=== PATIENT | male | born 1945 | race Caucasian/White ===

== ENCOUNTER 2021-07-27 11:04 | Emergency (ER) | payer MEDICARE, OTHER ==
[2021-07-27 12:03] LABS: HEMOGLOBIN 14.3 gm/dl (14.0-17.5); RED BLOOD COUNT 4.54 M/UL (4.20-5.50)
[2021-07-27 12:34] LABS: BUN/CREATININE RATIO 19 (0-10)
[2021-07-27] MEDS ORDERED: ZITHROMAX250 MG PO (12:58)
[2021-07-27] MEDS ORDERED: AMOX TR-K CLV1 EAC4 PO (12:58)
== END 2021-07-27 13:24 | disposition home or self-care (01) ==
LOC: ER1 11:04
PROVIDERS: Nurse Practitioner
DX: M25.512 Pain in left shoulder (principal); J18.9 Pneumonia, unspecified organism; I25.2 Old myocardial infarction; I10 Essential (primary) hypertension; Z79.82 Long term (current) use of aspirin; Z95.5 Presence of coronary angioplasty implant and graft
CPT/HCPCS: 71045; 72125; 80053; 82550; 82553; 83874; 84484; 85025; 86140; 96374; 96375; 99284; J1885; J2360

== ENCOUNTER 2021-07-31 11:25 | Inpatient (IN) | payer MEDICARE, OTHER ==
[~2021-07-31] VITALS: Ht 180.3 cm; Wt 86.2 kg
[~2021-07-31 11:25] MED LIST: AMOX TR-K CLV1 EAC4 PO; ZITHROMAX250 MG PO
[2021-07-31 13:07] LABS: HEMOGLOBIN 14.6 gm/dl (14.0-17.5); RED BLOOD COUNT 4.61 M/UL (4.20-5.50); WHITE BLOOD COUNT 10.8 K/UL (4.5-11.0)
[2021-07-31] MEDS ORDERED: IRBESARTAN-HCT1 EAC1 PO (16:03)
[2021-07-31] MEDS ORDERED: OMEPRAZOLE20 MG PO (16:03)
[2021-07-31] MEDS ORDERED: PRAVASTATIN SOD20 MG PO (16:04)
[2021-07-31] MEDS ORDERED: ASPIRIN EC81 MG PO (16:04)
[2021-07-31 20:40] LABS: BODY FLUID SOURCE PLEURAL; MONONUCLEAR CELLS 96.1 (75-100); POLYMORPHONUCLEAR % 3.9 (0-25); RBC (AUTOMATED) 99200 (0-100000); WBC (AUTOMATED) 2868 (0-500)
[2021-07-31 20:45] LABS: LDH, BODY FLUID 344 U/L; TOTAL PROTEIN, BODY FLUID 4.9 gm/dL
[2021-08-01 07:51] LABS: HEMOGLOBIN 13.9 gm/dl (14.0-17.5); RED BLOOD COUNT 4.43 M/UL (4.20-5.50); WHITE BLOOD COUNT 10.1 K/UL (4.5-11.0)
--- NOTE | 2021-08-01 19:15 | NUR ---
PATIENT STATED DR. SALDIVAR TOLD HIM THIS MORNING HE WOULD ORDER HIM SOME "PAIN CREAM" FOR HIS LEFT SHOULDER PAIN. NO ORDERED NOTED IN [facility] FOR TOPICAL CREAM. CALLED DR. SALDIVAR FOR PATIENT REQUEST. NO NEW ORDERS NOTED. DR. SALDIVAR STATED HE PRESCRIBED HIM PO PAIN MEDICATION.
[2021-08-02 06:39] LABS: HEMOGLOBIN 12.9 gm/dl (14.0-17.5); RED BLOOD COUNT 4.17 M/UL (4.20-5.50); WHITE BLOOD COUNT 10.1 K/UL (4.5-11.0)
[2021-08-02] MEDS ORDERED: COMBIVENT RESPIM4 GM INH (16:32)
[2021-08-02] MEDS ORDERED: AZITHROMYCIN500 MG PO (16:32)
[2021-08-02] MEDS ORDERED: CEFDINIR300 MG PO (16:32)
[2021-08-03 16:13] LABS: ORGANISM ID Not indicated. (.); SPECIMEN SOURCE Urine (.); STREPTOCOCCUS PNEUMONIAE AG Negative (Negative)
== END 2021-08-02 19:28 | disposition home or self-care (01) | DRG 196 ==
LOC: ER1 11:25 → CDU 15:22 → M/S 15:22
PROVIDERS: Internal Medicine; Physician Assistant; ADMIT Internal Medicine
PROC: 0W993ZZ Drainage of Right Pleural Cavity, Percutaneous Approach (ICD-10-PCS; principal; 2021-07-31)
DX: J84.10 Pulmonary fibrosis, unspecified (principal); J96.01 Acute respiratory failure with hypoxia; J18.9 Pneumonia, unspecified organism; J96.21 Acute and chronic respiratory failure with hypoxia; S22.31XA Fracture of one rib, right side, initial encounter for closed fracture; J90 Pleural effusion, not elsewhere classified; N17.9 Acute kidney failure, unspecified; J44.0 Chronic obstructive pulmonary disease with (acute) lower respiratory infection; I25.10 Atherosclerotic heart disease of native coronary artery without angina pectoris; E78.5 Hyperlipidemia, unspecified; Z20.822 Contact with and (suspected) exposure to COVID-19; Z95.5 Presence of coronary angioplasty implant and graft; I12.9 Hypertensive chronic kidney disease with stage 1 through stage 4 chronic kidney disease, or unspecified chronic kidney disease; N18.9 Chronic kidney disease, unspecified; I25.2 Old myocardial infarction
CPT/HCPCS: ECHO; 0240U; 36415; 36600; 71045; 71250; 80048; 80053; 80061; 81001; 82550; 82553; 82803; 83540; 83550; 83605; 83615; 83735; 83880; 83986; 84100; 84155; 84157; 84484; 85025; 85027; 86140; 87015; 87040; 87086; 87116; 87205; 87278; 87899; 89051; 93005; 93306; 94640; 94664; 94760; 96374; 96375; 99285; J0456; J0696; J1650; J2185; J2270; J2405; J7030

== ENCOUNTER 2021-08-12 18:02 | Emergency (ER) | payer MEDICARE, OTHER ==
[~2021-08-12 18:02] MED LIST changes: +ASPIRIN EC81 MG PO; +AZITHROMYCIN500 MG PO; +CEFDINIR300 MG PO; +COMBIVENT RESPIM4 GM INH; +IRBESARTAN-HCT1 EAC1 PO; +OMEPRAZOLE20 MG PO; +PRAVASTATIN SOD20 MG PO
[2021-08-12 19:02] LABS: HEMOGLOBIN 14.6 gm/dl (14.0-17.5); RED BLOOD COUNT 4.69 M/UL (4.20-5.50); WHITE BLOOD COUNT 11.7 K/UL (4.5-11.0)
[2021-08-12] MEDS ORDERED: COLACE 100MG C100 MG PO (22:39)
[2021-08-12] MEDS ORDERED: ENDOCET 5-3251 EACH PO (22:39)
== END 2021-08-12 23:00 | disposition home or self-care (01) ==
LOC: ER1 18:02
PROVIDERS: Emergency Medicine
DX: C34.91 Malignant neoplasm of unspecified part of right bronchus or lung (principal); I11.9 Hypertensive heart disease without heart failure; E78.5 Hyperlipidemia, unspecified
CPT/HCPCS: 80053; 82550; 82553; 83605; 83690; 84484; 85025; 96374; 96375; 99284; J2270; J2405; Q9967